=== PATIENT | male | born 1980 | race Caucasian/White ===

== ENCOUNTER 2018-07-19 12:16 | Outpatient (CLI) | payer OTHER ==
--- NOTE | 2018-07-19 15:11 | ULT ---
THYROID ULTRASOUND: INDICATIONS: Nodule. FINDINGS: Both thyroid lobes are homogeneous and appear normal in size. The right lobe measures 4.2 x 1.7 x 2. 0 cm, and the left lobe measures 4.0 x 1.5 x 1.7 cm. No mass or nodule identified. IMPRESSION: Unremarkable thyroid ultrasound. POS: [id number]
== END 2018-07-19 12:17 | disposition home or self-care (01) ==
LOC: ULT 12:16
PROVIDERS: ATTEND Nurse Practitioner Family
DX: E04.1 Nontoxic single thyroid nodule (principal)
CPT/HCPCS: 76536